=== PATIENT | male | born 1970 | race Caucasian/White ===

== ENCOUNTER 2022-08-03 08:15 | Inpatient (IN) | payer MEDICARE, OTHER ==
[~2022-08-03 08:15] MED LIST: CeFAZolin 2 GM/DEXTROSE 50 ML IV ONE; LORA10TA7 PO; RINGERS SOLUTION,LACTATED 1,000 ML IV ONE
[2022-08-04] MEDS ORDERED: RINGERS SOLUTION,LACTATED 1,000 ML IV ONE (11:00)
[2022-08-04] MEDS ORDERED: ETHYL ALCOHOL 62% ANTISEPTIC NASAL SANITIZER 0.6 ML AMPUL NASAL ONE (11:00)
[2022-08-04] MEDS ORDERED: CeFAZolin 2 GM/DEXTROSE 50 ML IV ONE (12:00)
[2022-08-11] MEDS ORDERED: PHENYLEPHRINE 200 MG/D5%-WATER 250 ML IV PRN (07:00)
[2022-08-11] MEDS ORDERED: BUPIVACAINE HCL/PF 0.5% 30 ML VIAL ONE (07:12)
[2022-08-11] MEDS ORDERED: VANCOMYCIN HCL 1 GM/VIAL ONE ×4 (07:12→13:16)
[2022-08-11] MEDS ORDERED: SODIUM CHLORIDE 0.9% 0 ML IV ONE (07:13)
[2022-08-11] MEDS ORDERED: FentaNYL CITRATE PF 100 MCG/2 ML VIAL IVP PRN (07:30)
[2022-08-11] MEDS ORDERED: HYDROmorphone HCL 2 MG/ML SYRINGE IVP PRN ×2 (07:30→09:30)
[2022-08-11] MEDS ORDERED: RINGERS SOLUTION,LACTATED 1,000 ML IV ONE ×3 (07:56→10:48)
[2022-08-11] MEDS ORDERED: CeFAZolin 2 GM/DEXTROSE 50 ML IV ONE ×2 (07:57→10:45)
[2022-08-11] MEDS ORDERED: ETHYL ALCOHOL 62% ANTISEPTIC NASAL SANITIZER 0.6 ML AMPUL NASAL ONE (09:00)
[2022-08-11 09:01] LABS: GLUCOMETER DEV NAME(LOC) SDS.; GLUCOSE,POINT OF CARE 130 MG/DL (70-110)
[2022-08-11] MEDS ORDERED: ACETAMINOPHEN 325 MG TABLET PO PRN (09:30)
[2022-08-11] MEDS ORDERED: DEXAMETHASONE SOD PHOS 4 MG/ML VIAL IVP PRN (09:30)
[2022-08-11] MEDS ORDERED: OxyCODONE HCL/ACETAMINOPHEN 5-325 MG TABLET PO PRN (09:30)
[2022-08-11] MEDS ORDERED: DiphenhydrAMINE HCL 50 MG/ML VIAL IVP PRN (09:30)
[2022-08-11] MEDS ORDERED: BACITRACIN 28 GM OINTMENT TP PRN (09:30)
[2022-08-11] MEDS ORDERED: MAG HYDROX/AL HYDROX/SIMETH 30 ML SUSP UDCUP PO PRN (09:30)
[2022-08-11] MEDS: BUPIVACAINE LIPOSOME/PF 1.3%-13.3MG/ML SUSPENSION 20 ML VIAL INJ ONE ×2 (09:51→17:39)
[2022-08-11] MEDS ORDERED: TRANEXAMIC ACID 1,000 MG/10 ML VIAL ONE (09:57)
[2022-08-11] MEDS ORDERED: ROCURONIUM BROMIDE 10 MG/ML 5 ML VIAL ONE (10:49)
[2022-08-11] MEDS ORDERED: PROPOFOL 1000 MG/ISO-OSM 100 ML ONE (11:09)
[2022-08-11] MEDS ORDERED: SUGAMMADEX SODIUM 200 MG/2 ML VIAL IVP ONE (11:41)
[2022-08-11] MEDS ORDERED: PROPOFOL 1% 20 ML VIAL IVP ONE (12:00)
[2022-08-11] MEDS ORDERED: MIDAZOLAM HCL 2 MG/2 ML VIAL IVP ONE (12:00)
[2022-08-11] MEDS ORDERED: KETOROLAC TROMETHAMINE 60 MG/2 ML VIAL IM ONE (12:00)
[2022-08-11] MEDS ORDERED: FentaNYL CITRATE PF 100 MCG/2 ML VIAL IVP ONE (12:00)
[2022-08-11] MEDS ORDERED: LIDOCAINE/PF 2% 5 ML VIAL IM ONE (12:00)
[2022-08-11] MEDS ORDERED: DEXAMETHASONE SOD PHOS 4 MG/ML VIAL IVP ONE (12:00)
[2022-08-11] MEDS ORDERED: KETAMINE HCL 50 MG/ML 10 ML VIAL IVP ONE (12:00)
[2022-08-11] MEDS ORDERED: ONDANSETRON HCL 4 MG/2 ML VIAL IVP ONE (12:00)
[2022-08-11] MEDS ORDERED: METOCLOPRAMIDE HCL 5 MG/ML 2 ML VIAL IVP ONE (12:00)
[2022-08-11] MEDS ORDERED: ONDANSETRON HCL 4 MG/2 ML VIAL ONE (12:16)
[2022-08-11] MEDS: ONDANSETRON HCL 4 MG/2 ML VIAL IVP PRN (12:20)
[2022-08-11] MEDS ORDERED: HYDROmorphone HCL 2 MG/ML SYRINGE ONE (12:23)
[2022-08-11] MEDS: HYDROmorphone HCL 2 MG/ML SYRINGE IVP PRN ×5 (12:36→13:31)
[2022-08-11] MEDS ORDERED: ALBUTEROL SULFATE 2.5 MG/0.5 ML NEB SOLUTION NEB PRN (12:45)
[2022-08-11] MEDS ORDERED: IPRATROPIUM BROMIDE 0.5 MG/2.5 ML NEB SOLUTION NEB PRN (12:45)
[2022-08-11 15:05] VITALS: BP 130/85
[2022-08-11] MEDS ORDERED: SODIUM CHLORIDE 0.9% 500 ML IV ONE (16:03)
[2022-08-11] MEDS: CeFAZolin 1 GM/DEXTROSE 50 ML IV SCH ×2 (16:14→22:15)
[2022-08-11] MEDS: OxyCODONE HCL/ACETAMINOPHEN 5-325 MG TABLET PO PRN ×2 (16:27→22:16)
[2022-08-11] MEDS: POTASSIUM CHL 20 MEQ/0.45% NS 1,000 ML IV SCH (17:26)
[2022-08-11] MEDS: CYCLOBENZAPRINE HCL 10 MG TABLET PO SCH ×2 (17:26→21:24)
[2022-08-11] MEDS: OXYGEN THERAPY IH SCH (20:00)
[2022-08-11 20:20] VITALS: BP 154/98
[2022-08-11] MEDS: DOCUSATE SODIUM 100 MG CAPSULE PO SCH (21:00)
[2022-08-11] MEDS: ZOLPIDEM TARTRATE 10 MG TABLET PO PRN (23:38)
[2022-08-12 00:12] VITALS: BP 145/77
[2022-08-12 05:14] VITALS: BP 122/71
[2022-08-12] MEDS: POTASSIUM CHL 20 MEQ/0.45% NS 1,000 ML IV SCH (05:23)
[2022-08-12 06:31] LABS: BASOPHILS % (AUTO) 0.1 % (0.0-2.0); EOSINOPHILS % (AUTO) 0 % (1.0-6.0); HEMATOCRIT 44.8 % (41-53); LYMPHOCYTES # (AUTO) 0.9 K/uL (1.0-4.8); LYMPHOCYTES % (AUTO) 5.6 % (22.0-44.0); MEAN CORPUSCULAR HEMOGLOBIN 34.8 pg (26.0-34.0); MEAN CORPUSCULAR HGB CONC 33.4 G/dL (31.0-37.0); MEAN CORPUSCULAR VOLUME 104 fL (80-100); MONOCYTES # (AUTO) 1.2 K/uL (0.1-1.0); NEUTROPHILS # (AUTO) 14.6 K/uL (1.8-7.7); PLATELET COUNT (AUTO) 310 K/uL (150-450); RED BLOOD CELL COUNT(AUTO) 4.31 MIL/uL (4.50-5.90); RED CELL DISTRIBUTION WIDTH 14.3 % (11.5-14.5)
[2022-08-12 07:13] LABS: NEUTROPHILS % (AUTO) 87.3 % (40.0-70.0)
[2022-08-12 07:37] VITALS: BP 119/81
[2022-08-12 07:49] LABS: ALANINE AMINOTRANSFERASE 25 U/L (12-78); ALBUMIN 3.5 g/dL (3.4-5.0); ALKALINE PHOSPHATASE 66 U/L (46-116); ANION GAP 11 mmol/L (8-16); ASPARTATE AMINOTRANSFERASE 22 U/L (15-37); BILIRUBIN,TOTAL 0.4 mg/dL (0.1-1.0); CALCIUM, TOTAL 9.3 mg/dL (8.8-10.5); CARBON DIOXIDE 24 mmol/L (22-29); CHLORIDE 101 mmol/L (98-107); CREATININE 0.72 mg/dL (0.60-1.30); GLOMERULAR FILTR. RATE CALC > 60 mL/min (>60); GLUCOSE,RANDOM 117 mg/dL (70-110); POTASSIUM 3.9 mmol/L (3.5-5.1); SODIUM SERUM 136 mmol/L (136-145); TOTAL PROTEIN, SERUM 7.2 g/dL (6.4-8.2)
[2022-08-12] MEDS: OXYGEN THERAPY IH SCH (08:00)
[2022-08-12] MEDS: DOCUSATE SODIUM 100 MG CAPSULE PO SCH ×2 (08:49→21:00)
[2022-08-12] MEDS: CYCLOBENZAPRINE HCL 10 MG TABLET PO SCH ×3 (08:49→21:00)
[2022-08-12] MEDS: LORATADINE 10 MG TABLET PO SCH (08:49)
[2022-08-12] MEDS: OxyCODONE HCL/ACETAMINOPHEN 5-325 MG TABLET PO PRN ×3 (08:50→22:05)
[2022-08-12 14:10] VITALS: BP 137/80
[2022-08-12] MEDS: ONDANSETRON HCL 4 MG/2 ML VIAL IVP PRN (16:16)
[2022-08-12 19:51] VITALS: BP 130/77
[2022-08-12] MEDS: ZOLPIDEM TARTRATE 10 MG TABLET PO PRN (21:00)
[2022-08-13] MEDS: OxyCODONE HCL/ACETAMINOPHEN 5-325 MG TABLET PO PRN (03:37)
[2022-08-13 04:25] VITALS: BP 128/88
[2022-08-13 07:37] VITALS: BP 135/90
[2022-08-13] MEDS: CYCLOBENZAPRINE HCL 10 MG TABLET PO SCH (09:05)
[2022-08-13] MEDS: LORATADINE 10 MG TABLET PO SCH (09:05)
[2022-08-13] MEDS: DOCUSATE SODIUM 100 MG CAPSULE PO SCH (09:05)
[2022-08-13] MEDS: OXYGEN THERAPY IH SCH (09:06)
[2022-08-13] MEDS ORDERED: CYCL-448 PO (10:28)
[2022-08-13] MEDS ORDERED: BACI28OI9 TP (10:28)
[2022-08-13] MEDS ORDERED: PERCT PO (10:28)
== END 2022-08-13 11:36 | disposition home or self-care (01) | DRG 473 ==
LOC: 6S 08-11 08:15 → 5S 08-11 14:00 → 6S 08-12 13:10 → 6N 08-12 15:32
PROVIDERS: ADMIT Neurological Surgery; ATTEND Internal Medicine
PROC: 0RB30ZZ Excision of Cervical Vertebral Disc, Open Approach (ICD-10-PCS; principal; 2022-08-12)
PROC: 0RG20A0 Fusion of 2 or more Cervical Vertebral Joints with Interbody Fusion Device, Anterior Approach, Anterior Column, Open Approach (ICD-10-PCS; 2022-08-12)
PROC: 4A11X4G Monitoring of Peripheral Nervous Electrical Activity, Intraoperative, External Approach (ICD-10-PCS; 2022-08-12)
DX: M47.812 Spondylosis without myelopathy or radiculopathy, cervical region (principal); M50.322 Other cervical disc degeneration at C5-C6 level; M50.323 Other cervical disc degeneration at C6-C7 level; J44.9 Chronic obstructive pulmonary disease, unspecified; G47.33 Obstructive sleep apnea (adult) (pediatric)
CPT/HCPCS: 71045; 80053; 82962; 85025; 87081; 93005; 97163; C9290; G0238; J0690; J1100; J1170; J1885; J2250; J2370; J2405; J2704; J2765; J3010; J3370; J3480; J3490; J7040; J7050; J7120; Q9967; 36415-L1; 36415-TC